=== PATIENT | male | born 1975 | race Caucasian/White ===

== ENCOUNTER 2021-02-24 12:41 | Emergency (ER) | payer OTHER, SELFPAY ==
--- NOTE | ~2021-02-24 | XR_ITS ---
XR hand LT min 3V DATE: 02/24/2021 13:03 INDICATION: Table saw injury to second, third and fourth digits TECHNIQUE: 3 views COMPARISON: None FINDINGS: Linear nondisplaced fracture of the tuft of the distal phalanx of the second digit. Comminuted minimally displaced fracture of the distal shaft and tuft of the distal phalanx of the thi rd digit. There is soft tissue irregularity consistent laceration of the distal fourth digit. No other fracture or dislocation is evident. IMPRESSION: Fractures of the distal phalanges of the second and third digits Reviewed, dictated and finalized at location A.
[2021-02-24 12:50] VITALS: BP 163/110; PULSE 73; RESP 16; TEMP 36.9; O2SAT 100
--- NOTE | 2021-02-24 13:33 | ED.WOUNDLAC ---
HPI - Wound/Laceration General Chief Complaint: Wound/Laceration Stated Complaint: table saw L hand Time Seen by Provider: 02/24/21 13:01 Source: patient Mode of arrival: ambulatory Limitations: no limitations History of Present Illness HPI narrative: This is a 46 year old male that presents to the ER for lacerations to the left hand sustained just prior to arrival. Reports he was using a table saw and sustained lacerations to the left second through fourth digits. Reports bleeding and pain to the area. He is up-to-date on tetanus. Denies decreased range of motion or numbness. Related Data Allergies Allergy/AdvReac Type Severity Reaction Status Date / Time No Known Allergies Allergy Verified 02/24/21 13:28 Review of Systems Review of Systems: CONSTITUTIONAL: Denies fever SKIN: Reports laceration MUSCULOSKELETAL: Reports joint pain, and myalgia. NEUROLOGIC: Denies numbness All systems reviewed & are unremarkable except as noted in HPI and below PMFSH Past Medical History Medical History (Updated 02/24/21 @ 15:37 by Vivian Cuellar PA-C) No active medical problems Social History Social History (Updated 02/24/21 @ 15:36 by Vivian Cuellar PA-C) Smoking status: Current every day smoker Exam Narrative: GENERAL: Well-appearing, well-nourished, and in no acute distress. HEAD: Normocephalic, atraumatic. EYES: EOMI. EXTREMITIES: Normal range of motion. No edema. Left second through fourth finger distal phalanges with irregular lacerations that involve the nail beds. Normal radial pulses. Normal sensation SKIN: Warm, dry, no rash. NEURO: No focal deficits. Alert and oriented x3. PSYCH: Normal mood and affect Course Consultations Consultation #1: Spoke with Dr. Wood about patient and work-up who will come to the ER to evaluate the patient Date: 02/24/21 Vital Signs Vital signs: Vital Signs Temperature 98.5 F 02/24/21 12:50 Pulse Rate 73 02/24/21 12:50 Respiratory Rate 16 02/24/21 12:50 Blood Pressure 163/110 H 02/24/21 12:50 Pulse Oximetry 100 02/24/21 12:50 Temperature 98.5 F 02/24/21 12:50 Pulse Rate 73 02/24/21 12:50 Respiratory Rate 16 02/24/21 12:50 Blood Pressure 163/110 H 02/24/21 12:50 Pulse Oximetry 100 02/24/21 12:50 MDM - Wound/Laceration MDM Narrative Medical decision making narrative: Patient presents to the emergency department after an injury with a table saw. Patient has irregular lacerations to the left second third fourth fingers. Left hand x-ray shows fractures of the distal phalanges of the second and third digits. Wounds were irrigated. Patient is up-to-date on tetanus. Given a dose of Ancef in the ED. Spoke with Dr. Wood about patient and work-up who came into the ER and sutured patient's lacerations. Patient will follow up in clinic with Dr. Wood. He was given warnings to return to the ER Imaging Data Radiologist's impression: ITS Impressions Hand X-Ray 02/24/21 13:08 IMPRESSION: Fractures of the distal phalanges of the second and third digits Critical Care Time Critical Care Time Critical Care Time: No Discharge Plan Discharge Clinical Impression: Laceration Open fracture of distal phalanx of finger of left hand Qualifiers: Encounter type: initial encounter Finger: middle finger Fracture alignment: nondisplaced Qualified Code(s): S62.663B - Nondisplaced fracture of distal phalanx of left middle finger, initial encounter for open fracture Patient Disposition: Home, Self-Care Condition: Stable Instructions: Care For Your Stitches (ED), Laceration (ED), Finger Fracture (ED) Additional Instructions: Return to the emergency department if you experience fever, redness and swelling of your wound, numbness, or any other symptoms that are concerning to you Rest. Elevate. Keep bandage in place until you see Dr. Wood. You may change the bandage if it gets soiled or wet. Take oral antibiotic as prescribed
[2021-02-24] MEDS: WATER, STERILE FOR INJECTION 10 ML VIAL XX (13:42)
[2021-02-24] MEDS: ceFAZolin SODIUM 1 GM VIAL IM (13:42)
[2021-02-24] MEDS: HYDROcodone/acetaminophen (*CRX) 5-325 MG TABLET 1 TAB PO (13:42)
[2021-02-24] MEDS: LIDO 1%/EPINEPHRINE 1:100,000 20 ML VIAL INFILTRATE (14:14)
[2021-02-24] MEDS: LORazepam (*CRX) 0.5 MG TABLET PO (14:20)
--- NOTE | 2021-02-24 15:31 | W.PM.PROC2 ---
Procedure Note - Detailed Date of Procedure 02/24/21 Pre-op Diagnosis table saw laceration L hand With open fractures with nail injury to the left 2nd 3rd and 4th digits Post-op Diagnosis same Procedure Performed 1.5 cm repair of open tuft fractures with nail injury to the left 2nd 3rd and 4th fingers Surgeon Marshall Wood MD Anesthesia local Indications table saw injury Findings Open minimally-displaced fractures of the distal phalanges of the left 2nd 3rd and 4th fingers Description of Procedure the patient was evaluated sitting on the gurney in the emergency room. He is a pleasant gentleman generally in good health. He was working at home today laying some eran when his left 3rd 4th fingers were injured by the table saw. These are distal injuries that affect the tuft primarily and the distal nail of each finger. I explained the recommended treatment for these which would involved clean slight debridement closing soft tissue that remains and dressing care. The indicated no particular care to the distal phalanx fractures was necessary. He agreed to allow the repaired. The 3 digits were anesthetized with 1% lidocaine with epinephrine as intrathecal blocks. The hand was prepped with Betadine. These wounds had already been irrigated and cleansed by the ER staff. Each finger was carefully examined there were no fragments of bone to reposition. The repairs were done with interrupted 5 0 nylon suture in several cases realigning the nail plate. Additional lacerations in the pad were lateral nail fold were repaired. Each finger shows some degree of nail bed injury. The index seemed to be the worst were there may be approximately 20% of nail bed missing. Dressings were applied and the patient is discharged with instructions and a prescription for hydrocodone and cephalexin. He was given IM cephalexin today and is up-to-date on his Tdap Estimated Blood Loss 3 Tourniquet Time 0 Drains No Packing No Pathology none sent Complications No immediate complications Condition stable Disposition other
[2021-02-24 15:41] VITALS: BP 136/113; PULSE 63; RESP 16; O2SAT 98
== END 2021-02-24 15:45 | disposition home or self-care (01) ==
PROVIDERS: Emergency Provider Emergency Medicine
DX: S62.661B Nondisplaced fracture of distal phalanx of left index finger, initial encounter for open fracture (principal); S62.633B Displaced fracture of distal phalanx of left middle finger, initial encounter for open fracture; S61.315A Laceration without foreign body of left ring finger with damage to nail, initial encounter; F17.200 Nicotine dependence, unspecified, uncomplicated; W31.2XXA Contact with powered woodworking and forming machines, initial encounter
CPT/HCPCS: 11760; 12002; 73130; 96372; 99283; A9270; J0690